=== PATIENT | female | born 1950 | race Caucasian/White ===

== ENCOUNTER 2023-05-03 08:16 | Emergency (ER) | payer OTHER ==
[2023-05-03 08:40] VITALS: BP 160/86; PULSE 66; RESP 16; TEMP 98.6; BMI 27.4
[2023-05-03] MEDS ORDERED: ACETAMINOPHEN INJECTION 100 ML IVPB ONE ×2 (09:04→09:22)
[2023-05-03] MEDS ORDERED: MECLIZINE HCL 25 MG TABLET (FP) ONE (09:04)
[2023-05-03] MEDS ORDERED: METOCLOPRAMIDE HCL INJECTION 10 MG/2 ML VIAL ONE (09:04)
[2023-05-03 09:18] LABS: BASO % 0.2 % (0-2.0); EOS % 2.4 % (0-4.5); HEMATOCRIT 37.4 % (32.4-45.2); HEMOGLOBIN 12.3 GM/dL (10.7-15.3); LYMPH % 21.9 % (8-40); MCH 29.6 pg (25.7-33.7); MEAN CELL VOLUME 89.9 fl (80-96); MEAN PLT VOLUME 9.8 fl (7.5-11.1); MONO % 7.8 % (3.8-10.2); NEUT % 67.7 % (42.8-82.8); PLATELET COUNT 207 10^3/uL (134-434); RBC 4.16 M/mm3 (3.60-5.2); RDW 12.8 % (11.6-15.6); WHITE BLOOD COUNT 9.4 K/mm3 (4.0-10.0)
[2023-05-03] MEDS: LACTATED RINGERS SOLUTION 1000 ML INFUS.BAG IV ONE (09:30)
[2023-05-03] MEDS: MECLIZINE HCL 25 MG TABLET (FP) PO ONE (09:31)
[2023-05-03] MEDS: METOCLOPRAMIDE HCL INJECTION 10 MG/2 ML VIAL IVPB ONE (09:31)
[2023-05-03] MEDS: ACETAMINOPHEN 1000 MG/100 ML BAG IVPB ONE (09:31)
[2023-05-03 09:43] LABS: ALBUMIN 4.2 g/dl (3.4-5.0); BILIRUBIN,TOTAL 0.7 mg/dL (0.2-1); CALCIUM 8.8 mg/dL (8.5-10.1); CREATININE 0.8 mg/dL (0.55-1.3); POTASSIUM 4.2 mmol/L (3.5-5.1); TOT PROT 7.4 g/dl (6.4-8.2)
== END 2023-05-03 11:40 | disposition left against medical advice (07) ==
LOC: JER 08:16
PROC: 3E033NZ Introduction of Analgesics, Hypnotics, Sedatives into Peripheral Vein, Percutaneous Approach (ICD-10-PCS; principal; 2023-05-03)
PROC: 3E033GC Introduction of Other Therapeutic Substance into Peripheral Vein, Percutaneous Approach (ICD-10-PCS; 2023-05-03)
PROC: 3E033GC Introduction of Other Therapeutic Substance into Peripheral Vein, Percutaneous Approach (ICD-10-PCS; 2023-05-03)
DX: R51.9 Headache, unspecified (principal); R42 Dizziness and giddiness; R11.2 Nausea with vomiting, unspecified; R07.9 Chest pain, unspecified
CPT/HCPCS: 36415; 70450-TC; 80053; 84484; 85025; 93005; 93010; 96374; 96375; 99285-25; J0131